=== PATIENT | female | born 1990 | race Caucasian/White ===

== ENCOUNTER 2022-03-05 22:51 | Emergency (ER) | payer SELFPAY ==
[~2022-03-05] VITALS: Ht 165.1 cm; Wt 104.5 kg
[2022-03-05 22:53] VITALS: BP 141/98
[2022-03-05 23:41] LABS: COVID AG,FIA SOURCE NASAL SWAB
[2022-03-06 00:08] LABS: INFLUENZA TYPE A NEGATIVE FOR TYPE A (NEGATIVE); INFLUENZA TYPE B NEGATIVE FOR TYPE B (NEGATIVE)
== END 2022-03-06 00:56 | disposition home or self-care (01) ==
LOC: EMS 22:51
DX: J06.9 Acute upper respiratory infection, unspecified (principal); Z20.822 Contact with and (suspected) exposure to COVID-19
CPT/HCPCS: 87804; 99284; Z7502